=== PATIENT | male | born 1985 | race Two or more races ===

== ENCOUNTER 2018-03-07 13:31 | Emergency (ER) | payer BC, OTHER ==
[~2018-03-07] VITALS: Ht 172.7 cm; Wt 104.3 kg
[2018-03-07 13:50] VITALS: BP 130/64
[2018-03-07] MEDS ORDERED: KETOROLAC TROMETH 60MG/2ML VIAL IM ONE (15:30)
[2018-03-07] MEDS ORDERED: METHOCARBAMOL 500 MG TAB PO ONE (15:30)
== END 2018-03-07 16:21 | disposition home or self-care (01) ==
LOC: EDBD 13:39 → ER 13:39
DX: M79.662 Pain in left lower leg (principal); W19.XXXA Unspecified fall, initial encounter; Y93.67 Activity, basketball; Y92.89 Other specified places as the place of occurrence of the external cause; Y99.8 Other external cause status
CPT/HCPCS: 96372; 99283; J1885